=== PATIENT | male | born 1995 | race Caucasian/White ===

== ENCOUNTER → 2025-04-17 17:01 | Outpatient (CLI) | payer OTHER, SELFPAY ==
--- NOTE | 2025-04-17 17:03 | DI.RAD.S_ITS ---
PROCEDURE: XR ANKLE LT MIN 3V INDICATIONS: Left ankle injury TECHNIQUE: 3 views of the ankle were acquired. COMPARISON: None. FINDINGS: Bones: No fractures or dislocations. Ankle mortise is normally aligned. No suspicious bony lesions. Soft tissues: No tibiotalar joint effusion. Achilles tendon appears normal. Soft tissue swelling of the lateral ankle. IMPRESSION: No acute bony abnormality or significant effusion. Dictated by: Wilfred Levy M.D. on 04/17/2025 at 16:33 Approved by: Wilfred Levy M.D. on 04/17/2025 at 16:33
== END ==
LOC: RAD 17:02
PROVIDERS: Referring Provider Registered Nurse; Visit Provider Registered Nurse
DX: M25.572 Pain in left ankle and joints of left foot (principal)
CPT/HCPCS: 73610